=== PATIENT | male | born 1980 | race African-American/Black ===

== ENCOUNTER 2019-10-07 06:02 | Observation (INO) ==
--- NOTE | 2019-09-30 14:34 | EKG Report ---
Test Performed on : 09/30/2019 2:27:02 PM Test Reason : PAT Blood Pressure : / mmHG Vent. Rate : 073 BPM Atrial Rate : 073 BPM P-R Int : 144 ms QRS Dur : 080 ms QT Int : 366 ms P-R-T Axes : 048 053 -17 degrees QTc Int : 403 ms Normal sinus rhythm. Nonspecific T wave abnormality Abnormal ECG No previous ECGs available Confirmed by Cristiano Bobo MD ([id number]) on 09/30/2019 8:28:21 PM
[2019-09-30 14:37] LABS: HEMATOCRIT 45.2 % (42.0-52.0); HEMOGLOBIN 14.7 g/dL (14.0-18.0); MCH 25.2 PG (27-31); MCHC 32.5 g/dL (33-37); MCV 77.4 FL (81-99); MPV 9.8 FL (7.4-10.4); RBC 5.84 XMIL (4.7-6.1); RDW 14.8 % (11.5-14.5); WBC 5.92 X1000 (4.8-10.8)
[2019-09-30 15:27] LABS: AGAP 12; BUN 11 mg/dL (8-22); CHLORIDE 100 mmol/L (98-107); COSMO 282; CREATININE 1.1 mg/dL (0.7-1.2); ESTIMATED GFR > 60; GLUCOSE 118 mg/dL (70-104); POTASSIUM 3.8 mmol/L (3.5-5.1); SODIUM 141 mmol/L (136-145); TCO2 29 mmol/L (25-35)
[2019-10-07] MEDS ORDERED: DIPRIVAN 1% ONE ×2 (06:04→07:53)
[2019-10-07] MEDS ORDERED: XYLOCAINE-MPF 2% ONE (06:04)
[2019-10-07] MEDS ORDERED: FENTANYL ONE (06:04)
[2019-10-07] MEDS ORDERED: VERSED ONE (06:04)
[2019-10-07] MEDS ORDERED: LUBRIFRESH PM OPH OINTMENT ONE ×2 (06:19→06:29)
[2019-10-07] MEDS ORDERED: LR 0 ML ONE (06:28)
[2019-10-07] MEDS ORDERED: KEFZOL 2 GM/D5W 0 GM/0 ML IVPB ONE (06:28)
[2019-10-07] MEDS ORDERED: CLINDAMYCIN 900 MG/D5W 900 MG/50 ML IVPB ONE (06:31)
[2019-10-07] MEDS ORDERED: TRANSDERM-SCOP ONE (06:31)
[2019-10-07] MEDS ORDERED: PEPCID ONE (06:31)
[2019-10-07] MEDS ORDERED: LR 1,000 ML ONE ×2 (06:31→11:54)
[2019-10-07] MEDS ORDERED: REGLAN ONE (06:31)
[2019-10-07] MEDS ORDERED: BSS OPHTH SOLN ONE (06:39)
[2019-10-07] MEDS ORDERED: XYLOCAINE 1%/EPI 1:100,000 ONE (06:40)
[2019-10-07] MEDS ORDERED: BACTROBAN OINTMENT ONE (06:40)
[2019-10-07] MEDS ORDERED: CLINDAMYCIN ONE (06:41)
[2019-10-07] MEDS ORDERED: ZOFRAN ONE (07:44)
[2019-10-07] MEDS ORDERED: DECADRON ONE (07:44)
[2019-10-07] MEDS ORDERED: NEO-SYNEPHRINE ONE (08:04)
[2019-10-07] MEDS ORDERED: STERILE WATER INJ. ONE (08:04)
[2019-10-07] MEDS ORDERED: EPHEDRINE ONE (08:06)
[2019-10-07] MEDS ORDERED: TORADOL ONE (09:26)
[2019-10-07] MEDS ORDERED: OFIRMEV 1000 MG/ISOTONIC SOLN 1,000 MG/100 ML BOTTLE ONE (10:41)
[2019-10-07] MEDS: DILAUDID ONE ×3 (12:13→15:09)
--- NOTE | 2019-10-07 13:25 | OPERATIVE NOTE ---
PROCEDURE DATE: 10/07/2019 PREOPERATIVE DIAGNOSIS: Left parotid mass, 3 cm. POSTOPERATIVE DIAGNOSIS: Left parotid mass, 3 cm. PROCEDURES PERFORMED: 1. Left superficial parotidectomy with facial nerve dissection. 2. AlloDerm implant, 4 x 2 cm. 3. Complex wound closure of neck and cheek, 15 cm. COMPLICATIONS: No complications. ANESTHESIA: General with endotracheal intubation. FINDINGS: Inferior division of the facial nerve. 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 Multiple branches of the inferior division of the facial nerve were dissected meticulously off of the tumor. At the end of the case, the nerve stimulated globally, both inferior and superior branches. DESCRIPTION OF PROCEDURE: The patient was identified and consented. Options were reviewed. He was brought to the operating room and placed in a supine position where general anesthesia was induced with endotracheal intubation. The left face was prepped and draped in the usual sterile fashion. One percent lidocaine with 100,000 epinephrine, 20 mL, was injected around the curvilinear parotid incision from the root of the helix down to the neck, and the flaps were also injected. After the patient was prepped and draped in the usual sterile fashion, the incision was created. Subcutaneous dissection was created anteriorly. Meticulous attention was paid to hemostasis. The mass and parotid fascia were divided along the anterior ear and down into the neck. The tail of parotid was removed from the sternocleidomastoid muscle and the digastric muscle. The facial nerve was identified along the anterior ear cartilage dissection. The main trunk was followed out meticulously until the inferior division was known. Each branch of the inferior division was meticulously dissected for complete removal of the lateral lobe of the inferior half of the parotid containing the mass. This was removed. The inferior division and superior division stimulated at the end of the dissection. This mass was then brought back to the sternocleidomastoid fascia as much as possible and closed with 4-0 Vicryl simple interrupted stitches. A drain was placed and brought out through a separate stab incision. AlloDerm was placed on the exposed parotid and secured. The layered closure, deep and intermediate subcutaneous simple interrupted 4-0 Vicryl stitches were used in the neck all the way up along the ear. Superficial closure was performed with simple interrupted 5-0 Prolene along the ear and face, and the clips along the inferior portion of the neck incision for a total complex wound closure of 15 cm of the face, ear, and neck. Mild pressure dressing was applied. He was allowed to recover from anesthesia, extubated, and transferred to the recovery room in stable condition. In the recovery room, he was noted to have a superior facial function with some weakness and the inferior division was functional but a little bit weaker than the upper division. Blood pressure was good. He will spend the night for blood pressure monitoring very carefully. cc: Hayes Cardoza MD
[2019-10-07] MEDS ORDERED: PHENERGAN IV PRN (15:05)
[2019-10-07] MEDS ORDERED: SODIUM CHLORIDE 0.9% INJ PRN (15:05)
[2019-10-07] MEDS ORDERED: PERCOCET-5 PO PRN (15:15)
[2019-10-07] MEDS: PERCOCET-5 PO PRN (15:16)
[2019-10-07] MEDS: CLINDAMYCIN 600 MG/D5W 600 MG/50 ML IVPB IV SCH ×2 (15:17→22:21)
[2019-10-07] MEDS: DILAUDID IV PRN ×2 (19:30→23:32)
[2019-10-07] MEDS: LR 1,000 ML IV SCH (23:36)
[2019-10-08] MEDS: PERCOCET-5 PO PRN (03:57)
[2019-10-08] MEDS: LR 1,000 ML IV SCH (04:23)
[2019-10-08] MEDS: CLINDAMYCIN 600 MG/D5W 600 MG/50 ML IVPB IV SCH (06:01)
[2019-10-08 07:54] VITALS: BP 117/85
== END 2019-10-08 07:48 | disposition home or self-care (01) ==
LOC: ICU 06:02 → OR 06:02
PROVIDERS: ATTEND Otolaryngology Otolaryngology/Facial Plastic Surgery